=== PATIENT | male | born 1935 | race Caucasian/White ===

== ENCOUNTER 2017-02-12 06:52 | Day surgery (SDC) | payer MEDICARE, OTHER ==
[2017-02-11 10:04] LABS: BASOPHILS 0.4 %; BASOPHILS ABSOLUTE 0.05 10/3/uL (0.0-0.16); EOSINOPHILS 2.8 %; EOSINOPHILS ABSOLUTE 0.32 10/3/uL (0.0-0.53); HEMATOCRIT 26.2 % (40.0-51.0); HEMOGLOBIN 8.1 g/dL (13.6-17.8); IMMATURE GRANULOCYTES 0.3 %; IMMATURE GRANULOCYTES ABSOLUTE 0.04 10/3/uL (0.0-0.11); LYMPHOCYTES 15.2 %; LYMPHOCYTES ABSOLUTE 1.74 10/3/uL (0.67-4.30); MEAN CORPUS HGB CONC 30.9 g/dL (32.0-36.0); MEAN CORPUSCULAR HEMOGLOB 23.8 pg (26.0-34.0); MEAN PLATELET VOLUME 8.4 fL (9.2-13.0); MONOCYTES 12.8 %; MONOCYTES ABSOLUTE 1.47 10/3/uL (0.21-1.20); NEUTROPHILS 68.5 %; NEUTROPHILS ABSOLUTE 7.83 10/3/uL (2.02-8.40); RBC DISTRIBUTION WIDTH 16.3 % (12.0-16.0); WHITE BLOOD CELLS 11.5 10/3/uL (4.5-10.5)
[2017-02-11 10:05] LABS: MANUAL DIFF NO %; MEAN CORPUSCULAR VOLUME 77.1 fL (80-100); PLATELET COUNT 368 10/3/uL (150-400)
[2017-02-11 10:22] LABS: CHLORIDE, SERUM 104 MMOL/L (96-112); CO2 (CARBON DIOXIDE) 27 MMOL/L (24-34); CREATININE 1.69 MG/DL (0.70-1.30); GFR AFRICAN AMERICAN 43 ML/MIN (>=60); GFR NON AFRICAN AMERICAN 37 ML/MIN (>=60); POTASSIUM, SERUM 4.6 MMOL/L (3.5-5.3); SODIUM, SERUM 138 MMOL/L (135-148)
[2017-02-11 10:23] LABS: BUN (BLOOD UREA NITROGEN) 42 MG/DL (6-23); CALCIUM, SERUM 8.6 MG/DL (8.5-10.4); GLUCOSE, SERUM 157 MG/DL (60-99)
[2017-02-11 10:32] LABS: ASCORBIC ACID (UR NOT ORDER) NEG (NEG); BILIRUBIN, URINE NEGATIVE (NEG); KETONE, URINE NEGATIVE (NEG); LEUKOCYTE ESTERASE(NOT OR NEG (NEG); WBC (NOT ORDERED) (RFLEX) < 1 (0-5)
--- NOTE | ~2017-02-12 | OP ---
Record Of Operation [facility] [address] [place]. [address] NAME: THA HOOPER : 33 STATUS : DIS IN PAT#: [id number] AGE: 81 ADM/REG DATE : 02/12/17 MR#: [id number] REPORT SERV DATE: 02/15/17 DICTATED BY: STORM RODRÍGUEZ II DATE: 02/15/17 REPORT STATUS : Draft TRANSCRIBED BY: MODL DATE: 02/15/17 DATE OF PROCEDURE: 02/12/2017 ATTENDING CO-SURGEON: Storm Rodríguez M.D. PREOPERATIVE DIAGNOSIS: 1. Peripheral vascular disease. 2. Critical ischemia left leg with ulceration left foot. POSTOPERATIVE DIAGNOSIS: 1. Peripheral vascular disease. 2. Critical ischemia left leg with ulceration left foot. PROCEDURE: 1. Abdominal aortogram. 2. Left leg angiogram. 3. Insertion of second sheath in the left dorsalis pedis artery (pedal access). 4. Percutaneous angioplasty and stent placement of the left superficial femoral and popliteal artery occlusion. 5. Percutaneous angioplasty of the left posterior tibial artery. ANESTHESIA: Local with MAC. IV FLUIDS: 1200. ESTIMATED BLOOD LOSS: 25 mL. CONTRAST: 95. BRIEF HISTORY: Mr. Hooper is an 81-year-old gentleman who has critical ischemia of his left leg. He has had a previous attempt at percutaneous therapy but he was unsuccessful. After review of the films, he was felt to be a good candidate for possible pedal access. DETAILS OF PROCEDURE: He was taken to the operating room and placed in supine position on the table. Both groins were prepped and draped. I used ultrasound to identify the right common femoral, performed a puncture, placed a 5-Tamazight sheath. I then passed a catheter into the left iliac. Angiogram was performed demonstrating a patent left iliac system although there is tortuosity noted. There is no stenosis. We then passed a catheter into the common femoral. Right leg angiogram demonstrates a patent common femoral, profunda femoris. The SFA was completely occluded just beyond its origin. There was no flow seen. Calcification is seen throughout the SFA down near the popliteal which was again occluded. The mid popliteal was occluded. The distal popliteal was patent. The tibial disease is present. Anterior tibial is patent. Posterior tibial is patent with diffuse disease noted throughout its course. The anterior tibial is somewhat diseased but it does appear to be patent to the foot. We then heparinized the patient. I was able to pass a sheath over the bifurcation. I passed a wire through the SFA down into the popliteal but despite multiple Record Of Operation [facility] [address] [place]. [address] NAME: THA HOOPER : 33 STATUS : DIS IN PAT#: [id number] AGE: 81 ADM/REG DATE : 02/12/17 MR#: [id number] REPORT SERV DATE: 02/15/17 DICTATED BY: STORM RODRÍGUEZ II DATE: 02/15/17 REPORT STATUS : Draft TRANSCRIBED BY: MODL DATE: 02/15/17 attempts, we were unable to enter into the true lumen of the popliteal. We then elected to proceed with pedal access. I performed a puncture of the dorsalis pedis. I then passed a wire retrograde through the dorsalis pedis and anterior tibial and into the popliteal and then into the SFA in the area of occlusion. I was then able to snare this and pulled the wire through the true lumen. We then elected to proceed with angioplasty of the entire length of the SFA and popliteal. We ballooned this. Angiogram now demonstrates these areas to be open; however, there still is limited flow with two areas of dissection, 1 proximal, 1 distal. We then stented these with 5 mm stents that were placed throughout the entire length of the SFA and popliteal. We ballooned, angioplastied these and the angiogram demonstrates a good result with no further significant stenosis and good flow demonstrated distally. At this point, we elected to treat the posterior tibial. We passed a wire to the level of the ankle and then brought a 3-mm balloon into the field and percutaneous angioplasty was performed of the proximal two-thirds posterior tibial artery. The balloon was left inflated for approximately 1 minute. Completion angiogram now demonstrates a good result with flow demonstrated through this down into the posterior tibial with good flow demonstrated to the foot and at this point, he actually had a palpable pulse. We then removed all the wires and catheters and closed percutaneously. At the end of the procedure, the patient was stable. He had tolerated it well. MARIANO/NARA Storm Rodríguez II, M.D. / [id number] CC: Lorenza Good II
[~2017-02-12 06:52] MED LIST: ASA5GR PO; ATV.5 PO; BETAPACE80 PO; FLOMAX4 PO; FOLIC ACID400 MC1 PO; FORTAMET500 MG PO; GLUCXL5 PO; HYDROCHLOROT25 MG PO; LANTUS SC; MAGNESIUM PO; MONOPRIL40 MG PO; NORCO1 TA2 PO; NORV10 PO; NOVOLOG SC; P1 PO; PLAVIX PO; ZOCOR40 PO
== END 2017-02-12 19:44 | disposition home or self-care (01) ==
LOC: SDC 06:52
PROVIDERS: Surgery
PROC: 047L3ZZ Dilation of Left Femoral Artery, Percutaneous Approach (ICD-10-PCS; principal; 2017-02-12 08:45)
PROC: 047N3ZZ Dilation of Left Popliteal Artery, Percutaneous Approach (ICD-10-PCS; 2017-02-12 08:45)
PROC: 047S3ZZ Dilation of Left Posterior Tibial Artery, Percutaneous Approach (ICD-10-PCS; 2017-02-12 08:45)
PROC: B41DZZZ Fluoroscopy of Aorta and Bilateral Lower Extremity Arteries (ICD-10-PCS; 2017-02-12 08:45)
DX: I73.9 Peripheral vascular disease, unspecified (principal); I99.8 Other disorder of circulatory system; I12.9 Hypertensive chronic kidney disease with stage 1 through stage 4 chronic kidney disease, or unspecified chronic kidney disease; E11.22 Type 2 diabetes mellitus with diabetic chronic kidney disease; N18.9 Chronic kidney disease, unspecified; L97.529 Non-pressure chronic ulcer of other part of left foot with unspecified severity; I25.10 Atherosclerotic heart disease of native coronary artery without angina pectoris; D64.9 Anemia, unspecified; K21.9 Gastro-esophageal reflux disease without esophagitis; M06.9 Rheumatoid arthritis, unspecified; K44.9 Diaphragmatic hernia without obstruction or gangrene; N40.0 Benign prostatic hyperplasia without lower urinary tract symptoms; Z95.1 Presence of aortocoronary bypass graft; Z86.73 Personal history of transient ischemic attack (TIA), and cerebral infarction without residual deficits; Z91.09 Other allergy status, other than to drugs and biological substances; Z88.6 Allergy status to analgesic agent; Z95.820 Peripheral vascular angioplasty status with implants and grafts; Z86.010 Personal history of colon polyps; Z87.891 Personal history of nicotine dependence; Z96.651 Presence of right artificial knee joint; Z96.1 Presence of intraocular lens; Z98.41 Cataract extraction status, right eye; Z98.42 Cataract extraction status, left eye; Z90.49 Acquired absence of other specified parts of digestive tract; Z79.4 Long term (current) use of insulin; Z79.84 Long term (current) use of oral hypoglycemic drugs; Z79.52 Long term (current) use of systemic steroids; Z79.82 Long term (current) use of aspirin; Z79.899 Other long term (current) drug therapy
CPT/HCPCS: 36247; 36415; 37226; 37228; 71020; 75710; 80048; 81001; 82962; 85025; 86850; 86900; 86901; 86920; 87641; 93005; A9270-GY; C1725; C1760; C1769; C1876; C1894; J0690; J2250; J2370; J2405; J2710; J3010; Q9966

== ENCOUNTER 2017-02-15 15:12 | Inpatient (IN) | payer MEDICARE, OTHER ==
--- NOTE | ~2017-02-15 | CN ---
Consultation Report [facility] [address] [place]. [address] NAME: THA HOOPER : 33 STATUS : ADM IN PAT#: [id number] AGE: 81 ADM/REG DATE : 02/15/17 MR#: [id number] REPORT SERV DATE: 02/17/17 DICTATED BY: LANE SANDOVAL JR. DATE: 02/17/17 REPORT STATUS : Draft TRANSCRIBED BY: MODMelly DATE: 02/17/17 CONSULT NOTE DATE OF CONSULTATION: 02/15/2017 CHIEF COMPLAINT: Urinary retention. HISTORY OF PRESENT ILLNESS: Mr. Hooper is an 81-year-old gentleman, who was admitted through the emergency room with lower abdominal pain and was felt to have possible diverticulitis, possible urinary sepsis or bacteremia from his diverticulitis. A Shell catheter was placed in the emergency room. He had a 1000 mL residual. His creatinine at that time was 2.02. Since that time, his creatinine has come down to 1.7 yesterday and today is also 1.7. He reports that his pain that he came in with was relieved upon placement of the Shell catheter and overall has felt better over the past 24-48 hours. He does see Dr. Schrader in [place], [place]. I have also seen him here in consultation in the past. He takes Flomax 1 pill at bedtime for bladder outlet obstructive symptoms. He has not had any prior surgical intervention by Dr. Schrader for his bladder outlet obstruction. PAST MEDICAL HISTORY: Significant for peripheral arterial and peripheral vascular disease, recent stenting by Dr. Vargas in bilateral lower extremities. Chronic anemia, chronic coronary artery disease with coronary artery bypass grafting, insulin-dependent diabetes type 2, hypertension, hyperlipidemia, BPH, and a history of stroke. SURGICAL HISTORY: As mentioned above, along with a right hemicolectomy and a right common femoral artery endarterectomy with a right popliteal and right SFA stent placement. ALLERGIES: CLINDAMYCIN AND NONSTEROIDAL MEDICATIONS. HOME MEDICATIONS: Include Tylenol, Norvasc, vitamin B, Plavix, folic acid, lisinopril, glipizide, hydrochlorothiazide, sliding scale insulin, Lantus insulin, magnesium oxide, metformin ER, Bactroban, nitroglycerin, prednisone, simvastatin, sotalol, and Flomax. SOCIAL HISTORY: He quit smoking several years ago. He currently denies any alcohol or illicit drug use. FAMILY HISTORY: Significant for stroke and esophageal cancer. LABORATORY: As per the above with a creatinine returning to baseline after Shell catheter placement. IMAGING: CT scan was reviewed, which reveals a somewhat distended gallbladder along with bilateral hydronephrosis as well as a thickened bladder which is very distended. He also had some signs of sigmoid diverticulosis with possible diverticulitis. Consultation Report [address] [place]. [address] NAME: THA HOOPER : 33 STATUS : ADM IN PAT#: [id number] AGE: 81 ADM/REG DATE : 02/15/17 MR#: [id number] REPORT SERV DATE: 02/17/17 DICTATED BY: LANE SANDOVAL JR. DATE: 02/17/17 REPORT STATUS : Draft TRANSCRIBED BY: NARA DATE: 02/17/17 ASSESSMENT: Urinary retention on Flomax x1. RECOMMENDATIONS: We will leave Shell catheter for 7-10 days to allow bladder rest. We will increase his Flomax to 2 pills p.o. at bedtime and we will have him follow up with Dr. Raciel BALES for followup on his prostate enlargement. ARSEN/NARA Lane Sandoval Jr., M.D. / [id number] CC: DO Moshe Otoole Kevin
--- NOTE | ~2017-02-15 | CN ---
Consultation Report [facility] [address] [place]. [address] NAME: THA SEYMOUR : 33 STATUS : ADM IN PAT#: [id number] AGE: 81 ADM/REG DATE : 02/15/17 MR#: [id number] REPORT SERV DATE: 02/17/17 DICTATED BY: CALVIN BLUM DATE: 02/17/17 REPORT STATUS : Draft TRANSCRIBED BY: MODL DATE: 02/17/17 GENERAL SURGERY CONSULTATION AND H AND P DATE OF CONSULTATION: 02/17/2017 CHIEF COMPLAINT: Recurrent diverticulitis. HISTORY OF PRESENT ILLNESS: This is an 81-year-old male, who recently on 02/12/2017, underwent an abdominal aortogram with the left lower extremity run off, and an angioplasty, and stent placement of left SFA, and also popliteal, and left posterior tibial artery. The patient went home, was doing well, and then per the daughter in the room, the patient started having the global weakness, fevers, and some mild lower abdominal pain, as well as anorexia. Of note, the patient has significant past medical/surgical history for diverticulitis, and got a right hemicolectomy in 2008, subsequently, since 2008, the patient has not had any bout of diverticulitis. The patient was seen and worked up, the patient was found to have urinary retention, and had approximately a liter of urine that was drained. There was evidence of hydronephrosis and acute kidney injury with that. Vascular has seen the patient, the patient has good signals in bilateral lower extremities and no hematoma at the access site. The patient has a degree of dementia and therefore, the history was taken from the daughter. The patient recently has had multiple bowel movements with no blood per rectum. No melena. The patient has no abdominal pain at this time. No fever, chills, nausea, or vomiting. REVIEW OF SYSTEMS: A 12-systems reviewed to the best of the ability and negative except as mentioned in HPI. ALLERGIES: CLINDAMYCIN AND NSAID. PAST MEDICAL HISTORY: Peripheral arterial disease, status post peripheral vascular disease, status post bilateral revascularization, chronic anemia, coronary artery disease, status post CABG; diabetes type 2, hypertension, hyperlipidemia, BPH; diverticulosis; status post right hemicolectomy for diverticulitis and a CVA. SURGICAL HISTORY: CABG, right hemicolectomy, right common femoral artery endarterectomy with right popliteal, and right SFA stent placement, left SFA, and popliteal stent placement, and angioplasty. SOCIAL HISTORY: Former tobacco abuser. Currently, negative for tobacco, alcohol, or drugs. FAMILY HISTORY: Mother with a stroke. Father with phimosis and siblings with esophageal cancer. MEDICATIONS: Tylenol, Norvasc, vitamin B, Plavix, folic acid, lisinopril, glipizide, hydrochlorothiazide, insulin, Lantus, magnesium, metformin, Bactroban, nitroglycerin Consultation Report [facility] [address] [place]. [address] NAME: THA SEYMOUR : 33 STATUS : ADM IN PAT#: [id number] AGE: 81 ADM/REG DATE : 02/15/17 MR#: [id number] REPORT SERV DATE: 02/17/17 DICTATED BY: CALVIN BLUM DATE: 02/17/17 REPORT STATUS : Draft TRANSCRIBED BY: MODL DATE: 02/17/17 sublingual, prednisone, simvastatin, sotalol, and Flomax. PHYSICAL EXAMINATION: VITAL SIGNS: Temperature 97.8, blood pressure 122/57, pulse of 58, respiratory rate 16, O2 is 100% on room air. GENERAL: Well-developed, well-nourished, in no acute distress white male appears the stated age. HEENT: Normocephalic and atraumatic. PERRLA. EOMI. Mucous membranes are moist. NECK: No lymphadenopathy. Trachea midline. CARDIOVASCULAR: Regular rate and rhythm. LUNGS: Clear to auscultation bilaterally. ABDOMEN: Soft, nondistended, and nontender. Bowel sounds are present. No masses appreciated on deep palpation. EXTREMITIES: No significant clubbing, cyanosis, or edema. Good cap refill. MUSCULOSKELETAL: Moves all extremities well. NEURO: Cranial nerves 2 through 12 are intact. A and O x3. GROINS: Access site noted. No hematoma appreciated. LABORATORY DATA: White count 11.1, hematocrit 24.9, currently receiving blood products, hematocrit has gotten as low as 21, platelets 282, sodium 138, potassium 4.1, chloride 100, bicarb 23, BUN 41, creatinine 1.79, glucose calcium 7.6, magnesium 2.7, phosphorus 2.1. CT scan was reviewed and it was noted some mild diverticulosis along the descending colon, moderate diverticulosis in the sigmoid colon. There was some thickening that was noted with the descending colon, the proximal sigmoid, with some mild infiltration of pericolonic fat planes that are outreach representative of acute diverticulitis no pericolonic abscess noted. The gallbladder was contracted. Ultrasound reveals no cholelithiasis fluid, gallbladder wall not thickened. ASSESSMENT/PLAN: This is an 81-year-old male with acute diverticulitis. 1. Continue the Levaquin and Flagyl antibiotic therapy. 2. No surgical intervention necessary at this time. Advance his diet as appropriate and tolerated. DICTATED BY: MD ANITA Veronica/NARA Calvin Blum M.D. / [id number] CC: Hermann Vergara, DO Consultation Report [address] [address] NAME: THA SEYMOUR : 33 STATUS : ADM IN PAT#: [id number] AGE: 81 ADM/REG DATE : 02/15/17 MR#: [id number] REPORT SERV DATE: 02/17/17 DICTATED BY: CALVIN BLUM DATE: 02/17/17 REPORT STATUS : Draft TRANSCRIBED BY: NARA DATE: 02/17/17 TIFFANIE NEGRETE
--- NOTE | ~2017-02-15 | CN ---
Consultation Report [facility] [address] [place]. [address] NAME: THA SEYMOUR : 33 STATUS : ADM IN PAT#: [id number] AGE: 81 ADM/REG DATE : 02/15/17 MR#: [id number] REPORT SERV DATE: 02/18/17 DICTATED BY: ANNA QUINTANA DATE: 02/18/17 REPORT STATUS : Draft TRANSCRIBED BY: MODL DATE: 02/18/17 INFECTIOUS DISEASE CONSULTATION DATE OF CONSULTATION: 02/18/2017 REASON FOR CONSULTATION: Diverticulitis. HISTORY OF PRESENT ILLNESS: This is an 81-year-old man with multiple medical problems, including diabetes, coronary artery disease, and severe peripheral arterial disease. On 02/12/2017, he had undergone abdominal aortogram and left leg angiogram followed by percutaneous angioplasty and stent placement in left superficial femoral and popliteal artery occlusions along with percutaneous angioplasty of the left posterior tibial artery. The patient then represented to the emergency department on 02/15/2017, with fevers at home up to 100.8. At that time, in the chart, it states there was some complaint of lower quadrant abdominal pain, although the patient denies this now. He had a white blood cell count of 20.0 and did have a temperature here in the hospital the first 24 hours of 100.7. He also had evidence of mild acute kidney injury with creatinine of 2.02 with baseline around 1.6 and his procalcitonin was 0.32. The patient underwent a CT scan of the abdomen and pelvis without IV contrast, which was interpreted as showing mild diverticulosis of the descending colon and moderate diverticulosis of the sigmoid colon along with thickening of the [id number] descending colon and proximal sigmoid colon with mild infiltration of pericolonic fat planes, which was felt to possibly represent an early acute diverticulitis pattern. In addition, the gallbladder was contracted and mildly thickened in appearance. This led to an ultrasound of the gallbladder, which was felt to be normal. The patient was placed on admission on empiric antibiotics of Levaquin and Flagyl after blood cultures were obtained. He has improved. He has had no further fevers and his white blood cell count has decreased. It was 11.1 yesterday, although he is up to 13.2 today. His creatinine also is back to baseline. The patient denies any abdominal pain, nausea, vomiting, or diarrhea, and he is eating a diet. The patient has been followed by General surgery. PAST MEDICAL HISTORY: In addition to the above is notable for previous diverticulitis some years ago requiring right hemicolectomy. He also has a history of hyperlipidemia, BPH, hypertension, coronary artery bypass surgery. ALLERGIES: CLINDAMYCIN AND NONSTEROIDAL ANTI-INFLAMMATORY DRUGS. PRESENT MEDICATIONS: In addition to the antibiotics include Norvasc, aspirin, Plavix, folic acid, insulin sliding scale, magnesium oxide, Protonix, prednisone 6 mg daily, Zocor, Betapace, Flomax, Actigall, multivitamins, and Levemir. SOCIAL HISTORY: He lives with his of 64 years, past smoker, nondrinker. FAMILY HISTORY: Notable for mother with a stroke. Consultation Report [address] [place]. [address] NAME: THA SEYMOUR : 33 STATUS : ADM IN [facility]#: [id number] AGE: 81 ADM/REG DATE : 02/15/17 MR#: [id number] REPORT SERV DATE: 02/18/17 DICTATED BY: ANNA QUINTANA DATE: 02/18/17 REPORT STATUS : Draft TRANSCRIBED BY: NARA DATE: 02/18/17 REVIEW OF SYSTEMS: As outlined above. In addition, no chest pain, shortness of breath, or cough. The patient has had problems with urinary retention and bladder outlet obstruction and was evaluated by Dr. Sandoval this admission and a Shell catheter was placed with plans to leave it in place for seven to 10 more days. PHYSICAL EXAMINATION: VITAL SIGNS: The patient weighs 67 kg. He is afebrile. Blood pressure 168/54, pulse 60, respiratory rate 14. GENERAL: He is alert, pleasant, in no acute distress at all. HEAD AND NECK: Shows a clear oral cavity without thrush. Supple neck. LUNGS: Clear to auscultation anteriorly and laterally. CARDIAC: Without murmur, gallop, or rub. ABDOMEN: Shows bowel sounds to be present, nondistended, very soft, nontender throughout, midline scar. EXTREMITIES: No rash or edema. Couple of his left toes have some discoloration but this has improved according to his daughter. He has a peripheral IV without phlebitis. LABORATORY STUDIES: White blood cell count as mentioned, hemoglobin 10.0, platelets 303. Creatinine 1.55. Admission liver function tests normal except for AST of 59. Admission urinalysis negative except for hematuria. IMAGING STUDIES: As noted above. IMPRESSION: Sepsis on admission. This does appear to most likely be secondary to diverticulitis, although his physical exam has never been very impressive, and he denies abdominal pain now. No other likely source identified, though on a very thorough workup. He is improved on the empiric Levaquin and Flagyl, although his white blood cell count is higher today. PLAN: 1. We will change Levaquin and Flagyl to oral administration. 2. Repeat white blood cell count in the morning. If it is higher, I would substitute Augmentin for the Flagyl. SUSIE/NARA Anna Quintana M.D. / [id number] CC: Consultation Report [address] [address] NAME: HTA SEYMOUR : 33 STATUS : ADM IN PAT#: [id number] AGE: 81 ADM/REG DATE : 02/15/17 MR#: [id number] REPORT SERV DATE: 02/18/17 DICTATED BY: ANNA QUINTANA DATE: 02/18/17 REPORT STATUS : Draft TRANSCRIBED BY: NARA DATE: 02/18/17 DO PENELOPE Otoole KEVIN
--- NOTE | ~2017-02-15 | DS ---
Discharge Summary [facility] [address] [place]. [address] NAME: THA HOOPER : 33 STATUS : DIS IN PAT#: [id number] AGE: 81 ADM/REG DATE : 02/15/17 MR#: [id number] REPORT SERV DATE: 02/21/17 DICTATED BY: MAXIMO MICHELLE DATE: 02/20/17 REPORT STATUS : Draft TRANSCRIBED BY: MODL DATE: 02/20/17 ADMISSION DATE: 02/15/2017 DISCHARGE DATE: 02/20/2017 PRINCIPAL DIAGNOSIS: Sepsis associated with acute diverticulitis. SECONDARY DIAGNOSES: 1. Urinary retention with acute postobstructive acute kidney injury. 2. Generalized weakness. 3. Acute valvular heart failure. HISTORY OF PRESENT ILLNESS: Please see Dr. Bassett's dictation on 02/15/2017. HOSPITAL COURSE: Admitted with sepsis with acute kidney failure, found to have a urinary retention of greater than 3 L with hydronephrosis and acute renal insufficiency, but CT had also revealed acute diverticulitis. The patient received antibiotic therapy. IV hydration, bladder decompression with resolution of his kidney failure and improvement in his symptomatology, he is able to eat. He did not do very well with physical therapy; however, his family refused to send him to rehabilitation. They said they had five different people who could provide care for him and even help him get up and transfer which he was not independent in doing at the time of discharge. The patient had no other medical needs. He had been changed over to Levaquin and Flagyl. Other medicines include Betapace 40 mg b.i.d., Lipitor, Levemir 10 q.h.s., magnesium, aspirin, Bactroban, Flomax, Norvasc, prednisone. It should be noted the patient did not have acute cholecystitis which Dr. Vergara had expressed concern about. The patient had a decompressed gallbladder which was actually entirely normal. It should be also noted that the patient had an episode of pulmonary edema during hospitalization, after aggressive IV hydration this improved with diuretics. An echocardiogram revealed normal ejection fraction with mitral and tricuspid regurgitation. Mr. Tha Hooper will go home with followup with Dr. Juan Carlos Mesa in one to two weeks and Dr. Sandoval in one week for Shell catheter removal. Home Health Physical Therapy was arranged. Low-salt diet. Greater than 30 minutes were spent in the care of this patient on discharge planning and discharge day. ISMAEL/NARA Maximo Michelle M.D. / [id number] CC: Maximo Michelle M.D. Discharge Summary [address] [address] NAME: THA HOOPER : 33 STATUS : DIS IN PAT#: [id number] AGE: 81 ADM/REG DATE : 02/15/17 MR#: [id number] REPORT SERV DATE: 02/21/17 DICTATED BY: MAXIMO MICHELLE DATE: 02/20/17 REPORT STATUS : Draft TRANSCRIBED BY: NARA DATE: 02/20/[address] Gutiérrez Jr., M.D.
--- NOTE | ~2017-02-15 | HP ---
History And Physical [place] [id number] [facility] [place] [place]. [address] NAME: THA HOOPER : 31 STATUS : ADM IN PAT#: [id number] AGE: 81 ADM/REG DATE : 02/15/17 MR#: [id number] REPORT SERV DATE: 02/16/17 DICTATED BY: VIPIN PAREDES DATE: 02/15/17 REPORT STATUS : Draft TRANSCRIBED BY: MODL DATE: 02/15/17 DATE OF ADMISSION: 02/15/2017 POINT OF ENTRY: [facility] Emergency Department. PRIMARY WET END TESTER: Dr. Payne. PRIMARY VASCULAR SURGEON: Dr. Vargas. CHIEF COMPLAINT: Fevers, lower quadrant abdominal pain. HISTORY OF PRESENT ILLNESS: Mr. Hooper is an 81-year-old gentleman with a history of coronary artery disease as well as insulin-dependent diabetes mellitus type 2 and peripheral arterial disease, who presents to the emergency department today with reports of fever of 100.8 degrees at home as well as lower quadrant abdominal pain. The patient recently underwent left lower extremity revascularization by Dr. Vargas on 02/12/2017. Family states that he had a reported syncopal episode at home while trying to urinate shortly after arriving back from the hospital. They state that he has not had any other difficulties at home until today when he was reporting lower quadrant abdominal pain more over the bladder and also noted to have a fever of 100.8 degrees at home, and was also weak. Family denies any nausea, vomiting, or diarrhea, but did have an episode of emesis here in the emergency department. It is unclear if the patient had any change in his urinary frequency or output over the last few days. Initial evaluation in the emergency department is notable for stable vital signs, temperature of 99.0 degrees Fahrenheit. BUN 67, creatinine 2.02 which is above his baseline. His lower extremities reportedly had dopplerable pulses. Chest x-ray was clear. CT of the abdomen and pelvis was concerned for possible early acute diverticulitis as well as a mildly thickened gallbladder, and cholecystitis could not be ruled out. The patient also had a massively distended bladder as well as bilateral hydronephrosis, for which a Shell catheter was inserted and 1 L of urine was drained. The patient was subsequently admitted to the Hospitalist Service for further evaluation and management. COMPREHENSIVE REVIEW OF SYSTEMS: Otherwise negative unless listed in history of present illness. PREVIOUS MEDICAL HISTORY: 1. Peripheral arterial and peripheral vascular disease, status post bilateral revascularization. 2. Chronic anemia. 3. Coronary artery disease with prior coronary artery bypass grafting. 4. Insulin-dependent diabetes mellitus type 2. 5. Hypertension. 6. Hyperlipidemia. 7. BPH. History And Physical [address] [place]. [address] NAME: THA HOOPER : 31 STATUS : ADM IN [facility]#: [id number] AGE: 81 ADM/REG DATE : 02/15/17 MR#: [id number] REPORT SERV DATE: 02/16/17 DICTATED BY: VIPIN PAREDES DATE: 02/15/17 REPORT STATUS : Draft TRANSCRIBED BY: NARA DATE: 02/15/17 8. History of stroke. SURGICAL HISTORY: 1. CABG. 2. Right hemicolectomy. 3. Right common femoral artery endarterectomy with right popliteal and right SFA stent placement. 4. Left SFA and popliteal stent placement. ALLERGIES: ARE TO CLINDAMYCIN AND NSAIDS. HOME MEDICATIONS: 1. Tylenol 1000 mg daily p.r.n. 2. Norvasc 10 mg daily. 3. Vitamin B complex one tab daily. 4. Plavix 75 mg q.h.s. 5. Folic acid 800 mg q.h.s. 6. Lisinopril 40 mg daily. 7. Glipizide 10 mg daily. 8. Hydrochlorothiazide 25 mg daily. 9. Insulin sliding scale. 10.Lantus 18 units q.h.s. 11.Magnesium oxide 200 mg q.h.s. 12.Metformin ER 1000 mg daily. 13.Bactroban topical ointment. 14.Nitroglycerin sublingual p.r.n. 15.Prednisone 60 mg daily. 16.Simvastatin 20 mg q.h.s. 17.Sotalol 80 mg b.i.d. 18.Flomax 0.4 mg q.h.s. SOCIAL HISTORY: He is a former smoker. Currently denies any tobacco, alcohol, or illicits. FAMILY MEDICAL HISTORY: Mother with stroke history. Father with history of phimosis. Siblings, esophageal cancer. LABS AND IMAGIN. White count is 20.0, hemoglobin is 8.4, hematocrit is 26.6, platelet count is 329. 2. Sodium is 136, potassium 5.1, chloride 104, carbon dioxide 25, BUN 57, creatinine 2.02, glucose is 113, calcium is 8.3, protein 7.0, albumin is 2.9, bilirubin is 0.5, ALT is 35, AST 59, alkaline phosphatase is 101. 3. Lipase is 94. 4. Urinalysis, specific gravity is 1.013, large blood with only 2 white blood cells per high powered field. No evidence of any infection. Chest x-ray per my review shows some mild pulmonary venous congestion, but otherwise, no consolidation, infiltrate, or effusion. 5. CT scan of the abdomen and pelvis shows a distended gallbladder with bilateral History And Physical [address] [address] NAME: THA HOOPER : 31 STATUS : ADM IN [facility]#: [id number] AGE: 81 ADM/REG DATE : 02/15/17 MR#: [id number] REPORT SERV DATE: 02/16/17 DICTATED BY: VIPIN PAREDES DATE: 02/15/17 REPORT STATUS : Draft TRANSCRIBED BY: NARA DATE: 02/15/17 nephrosis as well as a mildly thickened gallbladder, cholecystitis cannot be ruled out as well as changes concerning for possible early acute descending and sigmoid diverticulitis. PHYSICAL EXAMINATION: VITAL SIGNS: Temperature is 99.0 degrees Fahrenheit, pulse is 69, respirations 17, saturating 92% on room air, blood pressure 158/61. On recheck, it is now 152/56, pulse of 73. GENERAL: The patient is awake, alert, in no acute distress. Resting comfortably in bed. He is a chronically ill-appearing elderly male. Family is at bedside. HEENT: Atraumatic and normocephalic. Moist mucous membranes. Pupils are equal, round, reactive to light and accommodation. Extraocular eye movements are intact. No scleral icterus. NECK: No jugular venous distention or carotid bruits. CARDIAC: Regular rate and rhythm. No murmurs or gallops. Normal S1, S2. LUNGS: Decreased breath sounds in the bases. Otherwise, no wheezes, rhonchi, or crackles. ABDOMEN: Soft. Somewhat tender to palpation over the left greater than right lower quadrant as well as suprapubic area. No rebound, guarding, or rigidity. No tenderness to palpation over the right upper quadrant. EXTREMITIES: Bilateral lower extremities have 1 to 2+ pitting edema. I am unable to palpate pulses bilaterally; however, they have been dopplered here in the ER. The left lower leg is somewhat cold compared to the right leg. SKIN: Warm and dry. The patient has diffuse ecchymoses over his anterior chest and bilateral upper extremities. PSYCH: Affect appropriate. NEURO: Alert and oriented x3. Cranial nerves 2 through 12 grossly intact. Speech is normal. Gait not assessed. ASSESSMENT AND PLAN: Mr. Hooper is an 81-year-old gentleman with history of peripheral arterial disease, status post recent left lower extremity revascularization, who presents with lower quadrant abdominal pain as well as fevers at home and found to have evidence of acute kidney injury as well as significant urinary retention. PROBLEM LIST: 1. Acute kidney injury. 2. Urinary retention with hydronephrosis. 3. Leukocytosis. 4. Possible early acute diverticulitis. 5. Gallbladder wall thickening. Cannot rule out cholecystitis. 6. Peripheral arterial disease and peripheral vascular disease. 7. Insulin-dependent diabetes mellitus type 2. PLAN: 1. Acute kidney injury. Suspect this is likely due to obstruction given the evidence of hydronephrosis and distended urinary bladder. The patient is also on IGGY inhibitor. We will hold the patient's IGGY inhibitor. He has already received a Shell catheter with appropriate drainage. We will provide aggressive IV fluid hydration. Checking History And Physical [address] [address] NAME: THA HOOPER : 31 STATUS : ADM IN [facility]#: [id number] AGE: 81 ADM/REG DATE : 02/15/17 MR#: [id number] REPORT SERV DATE: 02/16/17 DICTATED BY: VIPIN PAREDES DATE: 02/15/17 REPORT STATUS : Draft TRANSCRIBED BY: MODL DATE: 02/15/17 urine lytes. Followup repeat BMP in the morning. 2. Urinary retention likely secondary to the patient's known BPH. Shell catheter is in place. Continue to monitor. 3. Leukocytosis. Unclear etiology at this time. Chest x-ray is clear. Urinalysis without evidence of infection. The patient does have some changes concerning for possible early acute diverticulitis as well as cholecystitis cannot be ruled out. We will place the patient empirically on IV antibiotics. Blood cultures have been obtained. Lactic acid and procalcitonin also are pending. 4. Possible early acute diverticulitis. The patient does not have any symptoms consistent with this, but the patient is on antibiotics regardless. Continue to monitor. 5. Possible cholecystitis, again on antibiotics. No right upper quadrant ultrasound or nausea or vomiting. We will check a right upper quadrant ultrasound to better visualize the gallbladder. 6. History of peripheral arterial disease and peripheral vascular disease. The pulses have been dopplerable. There is no apparent evidence of any infection at this time. We will order an arterial Doppler to better visualize his vasculature. 7. Insulin-dependent diabetes mellitus type 2. Checking hemoglobin A1c. Place on insulin sliding scale. 8. DVT prophylaxis. Heparin subcu. 9. Code status. The patient wishes to be full code. JCB/MODL Vipin Paredes MD / [id number] CC: Don Brian M.D. Lorenza Smith II, M.D.
[2017-02-15 15:18] LABS: BASOPHILS 0.2 %; BASOPHILS ABSOLUTE 0.03 10/3/uL (0.0-0.16); EOSINOPHILS 0.1 %; EOSINOPHILS ABSOLUTE 0.02 10/3/uL (0.0-0.53); HEMATOCRIT 26.6 % (40.0-51.0); HEMOGLOBIN 8.4 g/dL (13.6-17.8); IMMATURE GRANULOCYTES 0.4 %; IMMATURE GRANULOCYTES ABSOLUTE 0.08 10/3/uL (0.0-0.11); LYMPHOCYTES 6.2 %; LYMPHOCYTES ABSOLUTE 1.23 10/3/uL (0.67-4.30); MEAN CORPUS HGB CONC 31.6 g/dL (32.0-36.0); MEAN CORPUSCULAR HEMOGLOB 23.9 pg (26.0-34.0); MEAN CORPUSCULAR VOLUME 75.6 fL (80-100); MEAN PLATELET VOLUME 8.3 fL (9.2-13.0); MONOCYTES 7.8 %; MONOCYTES ABSOLUTE 1.56 10/3/uL (0.21-1.20); NEUTROPHILS 85.3 %; NEUTROPHILS ABSOLUTE 17.03 10/3/uL (2.02-8.40); PLATELET COUNT 329 10/3/uL (150-400); RBC DISTRIBUTION WIDTH 16.3 % (12.0-16.0); RED CELL COUNT 3.52 10/6/uL (4.7-6.1)
[2017-02-15 15:25] LABS: ER CBC TAT 0 Hrs 12 Mins; MANUAL DIFF NO %
[2017-02-15 15:31] LABS: A/G RATIO 0.7 (0.7-1.9); ALBUMIN 2.9 G/DL (3.5-5.0); ALKALINE PHOSPHATASE 101 U/L (45-117); BUN (BLOOD UREA NITROGEN) 57 MG/DL (6-23); CALCIUM, SERUM 8.3 MG/DL (8.5-10.4); CHLORIDE, SERUM 104 MMOL/L (96-112); CO2 (CARBON DIOXIDE) 25 MMOL/L (24-34); CREATININE 2.02 MG/DL (0.70-1.30); GFR AFRICAN AMERICAN 34 ML/MIN (>=60); GFR NON AFRICAN AMERICAN 30 ML/MIN (>=60); GLOBULIN 4.1 G/DL (2.5-4.1); GLUCOSE, SERUM 113 MG/DL (60-99); POTASSIUM, SERUM 5.1 MMOL/L (3.5-5.3); SGOT(AST) 59 U/L (5-40); SGPT(ALT) 35 U/L (5-65); SODIUM, SERUM 136 MMOL/L (135-148); TOTAL BILIRUBIN 0.5 MG/DL (0-1.2)
[2017-02-15 16:08] LABS: BAND NEUTROPHILS 2 %; ER DIFF TAT 0 Hrs 55 Mins; LYMPHOCYTES 10 %; MONOCYTES 4 %; SEGMENTED NEUTROPHIL (0) 84 %; TOTAL NUCLEATED CELLS 100
[2017-02-15 16:09] LABS: ANISOCYTOSIS 1+ (5-10/OIF) (0-5/OIF); PLATELET ESTIMATE ADQ (ADEQUATE); POIKILOCYTOSIS 1+ (5-10/OIF) (0-5/OIF)
[2017-02-15 16:58] LABS: ASCORBIC ACID (UR NOT ORDER) NEG (NEG); BILIRUBIN, URINE NEGATIVE (NEG); ER URINALYSIS TAT 0 Hrs 14 Mins; KETONE, URINE NEGATIVE (NEG); LEUKOCYTE ESTERASE(NOT OR NEG (NEG); NITRITE (URINE) NEG (NEG); WBC (NOT ORDERED) (RFLEX) 2 (0-5)
[2017-02-15] MEDS ORDERED: P1 PO (19:16)
[2017-02-15] MEDS ORDERED: NORV10 PO (19:17)
[2017-02-15] MEDS ORDERED: HYDROCHLOROT25 MG PO (19:17)
[2017-02-15] MEDS ORDERED: MONOPRIL40 MG PO (19:17)
[2017-02-15] MEDS ORDERED: BETAPACE80 PO (19:17)
[2017-02-15] MEDS ORDERED: GLUCOTRO10 PO (19:18)
[2017-02-15] MEDS ORDERED: FORTAMET1000 MG PO (19:19)
[2017-02-15] MEDS ORDERED: PLAVIX PO (19:21)
[2017-02-15] MEDS ORDERED: ZOCOR20 PO (19:21)
[2017-02-15] MEDS ORDERED: FLOMAX4 PO (19:22)
[2017-02-15] MEDS ORDERED: MAGOX4 PO (19:22)
[2017-02-15] MEDS ORDERED: FERROCITE PO (19:22)
[2017-02-15] MEDS ORDERED: FOLIC ACID800 MCG PO (19:22)
[2017-02-15] MEDS ORDERED: BACTROINT TOP (19:23)
[2017-02-15] MEDS ORDERED: LANTUS SC (19:23)
[2017-02-15] MEDS ORDERED: NOVOLOG SC (19:23)
[2017-02-15] MEDS ORDERED: ACET500CAP PO (19:25)
[2017-02-15] MEDS ORDERED: NITROSTAT0.4 MG SL (19:26)
[2017-02-15 20:07] LABS: LACTATE 1.1 MMOL/L (0.3-2.4)
[2017-02-15 20:31] LABS: PROCALCITONIN 0.32 ng/mL (<0.5)
[2017-02-16 04:32] LABS: BASOPHILS 0.2 %; BASOPHILS ABSOLUTE 0.02 10/3/uL (0.0-0.16); EOSINOPHILS 0.5 %; EOSINOPHILS ABSOLUTE 0.06 10/3/uL (0.0-0.53); HEMOGLOBIN 7.3 g/dL (13.6-17.8); IMMATURE GRANULOCYTES 0.4 %; IMMATURE GRANULOCYTES ABSOLUTE 0.05 10/3/uL (0.0-0.11); LYMPHOCYTES 9.1 %; LYMPHOCYTES ABSOLUTE 1.05 10/3/uL (0.67-4.30); MEAN CORPUS HGB CONC 30.4 g/dL (32.0-36.0); MEAN CORPUSCULAR HEMOGLOB 23.5 pg (26.0-34.0); MEAN CORPUSCULAR VOLUME 77.4 fL (80-100); MEAN PLATELET VOLUME 8.7 fL (9.2-13.0); MONOCYTES 9.9 %; MONOCYTES ABSOLUTE 1.14 10/3/uL (0.21-1.20); NEUTROPHILS 79.9 %; RBC DISTRIBUTION WIDTH 16.6 % (12.0-16.0)
[2017-02-16 04:33] LABS: MANUAL DIFF NO %; PLATELET COUNT 218 10/3/uL (150-400); WHITE BLOOD CELLS 11.5 10/3/uL (4.5-10.5)
[2017-02-16 04:52] LABS: CALCIUM, SERUM 8.1 MG/DL (8.5-10.4); CHLORIDE, SERUM 107 MMOL/L (96-112); CO2 (CARBON DIOXIDE) 23 MMOL/L (24-34); GFR AFRICAN AMERICAN 42 ML/MIN (>=60); GFR NON AFRICAN AMERICAN 36 ML/MIN (>=60); GLUCOSE, SERUM 106 MG/DL (60-99); PHOSPHORUS, SERUM 3.3 MG/DL (2.5-4.5); POTASSIUM, SERUM 4.4 MMOL/L (3.5-5.3); SODIUM, SERUM 137 MMOL/L (135-148)
[2017-02-16 04:53] LABS: ALBUMIN 2.3 G/DL (3.5-5.0); BUN (BLOOD UREA NITROGEN) 53 MG/DL (6-23)
[2017-02-16 06:27] LABS: B NATRIURETIC PEPTIDE (BNP) 519.2 PG/ML (< 100.0)
[2017-02-16 06:33] LABS: CREATININE, URINE 37.5 MG/DL
[2017-02-16 16:27] LABS: INTERNATIONAL NORMAL RATI 1.3 UNITS (-); PARTIAL THROMBO TIME 40.5 SEC (22.5-37.2); PROTIME (NOT ORD) 15.9 SEC (12.0-14.5)
[2017-02-16 19:23] LABS: HEMOGLOBIN 6.8 g/dL (13.6-17.8)
[2017-02-17 00:05] LABS: HEMATOCRIT 21.1 % (40.0-51.0)
[2017-02-17 00:06] LABS: HEMOGLOBIN 6.5 g/dL (13.6-17.8)
[2017-02-17 00:14] LABS: PARTIAL THROMBO TIME 93.2 SEC (22.5-37.2)
[2017-02-17 01:42] LABS: GLYCOHEMOGLOBIN (HbA1c) 6.2 % (4.7-6.1)
[2017-02-17 05:28] LABS: BASOPHILS 0.3 %; BASOPHILS ABSOLUTE 0.03 10/3/uL (0.0-0.16); EOSINOPHILS 0.2 %; EOSINOPHILS ABSOLUTE 0.02 10/3/uL (0.0-0.53); HEMOGLOBIN 7.7 g/dL (13.6-17.8); IMMATURE GRANULOCYTES 0.4 %; IMMATURE GRANULOCYTES ABSOLUTE 0.04 10/3/uL (0.0-0.11); LYMPHOCYTES 13.2 %; LYMPHOCYTES ABSOLUTE 1.47 10/3/uL (0.67-4.30); MEAN CORPUS HGB CONC 31.2 g/dL (32.0-36.0); MEAN CORPUSCULAR HEMOGLOB 24.3 pg (26.0-34.0); MEAN CORPUSCULAR VOLUME 77.9 fL (80-100); MEAN PLATELET VOLUME 8.7 fL (9.2-13.0); MONOCYTES 14.2 %; MONOCYTES ABSOLUTE 1.58 10/3/uL (0.21-1.20); NEUTROPHILS 71.7 %; NEUTROPHILS ABSOLUTE 7.98 10/3/uL (2.02-8.40); PLATELET COUNT 282 10/3/uL (150-400); RBC DISTRIBUTION WIDTH 16.5 % (12.0-16.0); RED CELL COUNT 3.17 10/6/uL (4.7-6.1); WHITE BLOOD CELLS 11.1 10/3/uL (4.5-10.5)
[2017-02-17 05:30] LABS: HEMATOCRIT 24.7 % (40.0-51.0); MANUAL DIFF NO %
[2017-02-17 05:46] LABS: CALCIUM, SERUM 7.6 MG/DL (8.5-10.4); CHLORIDE, SERUM 108 MMOL/L (96-112); CO2 (CARBON DIOXIDE) 23 MMOL/L (24-34); CREATININE 1.79 MG/DL (0.70-1.30); GFR AFRICAN AMERICAN 40 ML/MIN (>=60); GFR NON AFRICAN AMERICAN 34 ML/MIN (>=60); GLUCOSE, SERUM 101 MG/DL (60-99); PHOSPHORUS, SERUM 3.1 MG/DL (2.5-4.5); POTASSIUM, SERUM 4.1 MMOL/L (3.5-5.3); SODIUM, SERUM 138 MMOL/L (135-148)
[2017-02-17 06:11] LABS: BUN (BLOOD UREA NITROGEN) 45 MG/DL (6-23)
[2017-02-17 13:07] LABS: HEMOGLOBIN 8.9 g/dL (13.6-17.8)
[2017-02-17 13:09] LABS: HEMATOCRIT 27.8 % (40.0-51.0)
[2017-02-18 06:44] LABS: BASOPHILS 0.2 %; BASOPHILS ABSOLUTE 0.03 10/3/uL (0.0-0.16); EOSINOPHILS 0.8 %; IMMATURE GRANULOCYTES 0.3 %; IMMATURE GRANULOCYTES ABSOLUTE 0.04 10/3/uL (0.0-0.11); LYMPHOCYTES 10.6 %; MEAN CORPUS HGB CONC 32.5 g/dL (32.0-36.0); MEAN PLATELET VOLUME 8.5 fL (9.2-13.0); MONOCYTES 12.1 %; NEUTROPHILS ABSOLUTE 10.06 10/3/uL (2.02-8.40); PLATELET COUNT 303 10/3/uL (150-400); RBC DISTRIBUTION WIDTH 16.1 % (12.0-16.0); WHITE BLOOD CELLS 13.2 10/3/uL (4.5-10.5)
[2017-02-18 06:47] LABS: HEMATOCRIT 30.8 % (40.0-51.0); MANUAL DIFF NO %
[2017-02-18 06:56] LABS: CALCIUM, SERUM 7.9 MG/DL (8.5-10.4); CHLORIDE, SERUM 109 MMOL/L (96-112); CO2 (CARBON DIOXIDE) 23 MMOL/L (24-34); CREATININE 1.55 MG/DL (0.70-1.30); GFR AFRICAN AMERICAN 47 ML/MIN (>=60); GFR NON AFRICAN AMERICAN 41 ML/MIN (>=60); PHOSPHORUS, SERUM 2.4 MG/DL (2.5-4.5); POTASSIUM, SERUM 3.8 MMOL/L (3.5-5.3); SODIUM, SERUM 139 MMOL/L (135-148)
[2017-02-18 06:57] LABS: BUN (BLOOD UREA NITROGEN) 36 MG/DL (6-23); GLUCOSE, SERUM 36 MG/DL (60-99)
[2017-02-19 04:26] LABS: BE (BASE EXCESS) -1.9 MEQ/L (0 +/- 2.5); CARBOXYHEMOGLOBIN 0.6 % (0-3); HCO3 (ACTUAL BICARBONATE) 21.3 MEQ/L (23-27); INSTRUMENT SERIAL # 8083; METHEMOGLOBIN 0.3 % (0-3); PCO2 (CO2 TENSION) 31 MMHG (35-45); PO2 (O2 TENSION) 57 MMHG (79-93); pH 7.46 (7.37-7.43)
[2017-02-19 04:27] LABS: ALLENS TEST Pos; DEVICE NC; O2 CONTENT 12.6 VOL% (18-24); OPERATOR ID 30014; SAMPLE Arterial
[2017-02-19 06:28] LABS: BASOPHILS 0.3 %; BASOPHILS ABSOLUTE 0.03 10/3/uL (0.0-0.16); EOSINOPHILS 0.9 %; EOSINOPHILS ABSOLUTE 0.09 10/3/uL (0.0-0.53); HEMATOCRIT 29.5 % (40.0-51.0); HEMOGLOBIN 9.6 g/dL (13.6-17.8); IMMATURE GRANULOCYTES 0.3 %; IMMATURE GRANULOCYTES ABSOLUTE 0.03 10/3/uL (0.0-0.11); LYMPHOCYTES ABSOLUTE 1.25 10/3/uL (0.67-4.30); MEAN CORPUS HGB CONC 32.5 g/dL (32.0-36.0); MEAN CORPUSCULAR HEMOGLOB 25.3 pg (26.0-34.0); MEAN CORPUSCULAR VOLUME 77.8 fL (80-100); MEAN PLATELET VOLUME 8.6 fL (9.2-13.0); MONOCYTES 13.8 %; MONOCYTES ABSOLUTE 1.44 10/3/uL (0.21-1.20); NEUTROPHILS 72.7 %; NEUTROPHILS ABSOLUTE 7.56 10/3/uL (2.02-8.40); PLATELET COUNT 309 10/3/uL (150-400); RBC DISTRIBUTION WIDTH 16.4 % (12.0-16.0); RED CELL COUNT 3.79 10/6/uL (4.7-6.1); WHITE BLOOD CELLS 10.4 10/3/uL (4.5-10.5)
[2017-02-19 06:37] LABS: BUN (BLOOD UREA NITROGEN) 34 MG/DL (6-23); CALCIUM, SERUM 7.5 MG/DL (8.5-10.4); CHLORIDE, SERUM 109 MMOL/L (96-112); CO2 (CARBON DIOXIDE) 24 MMOL/L (24-34); CREATININE 1.52 MG/DL (0.70-1.30); GFR AFRICAN AMERICAN 48 ML/MIN (>=60); GFR NON AFRICAN AMERICAN 42 ML/MIN (>=60); PHOSPHORUS, SERUM 1.7 MG/DL (2.5-4.5); POTASSIUM, SERUM 4.3 MMOL/L (3.5-5.3); SODIUM, SERUM 139 MMOL/L (135-148)
[2017-02-19 06:38] LABS: GLUCOSE, SERUM 96 MG/DL (60-99); MANUAL DIFF NO %
[2017-02-19 11:05] LABS: % IRON SAT 12 % (20-50); FERRITIN 447 NG/ML (26-388); IRON BINDING CAPACITY 130 MCG/DL (250-450); IRON, SERUM 15 MCG/DL (35-150)
[2017-02-19 11:31] LABS: RETICULOCYTE COUNT 0.7 % (0.5-2.5)
[2017-02-19 12:49] LABS: ASCORBIC ACID (UR NOT ORDER) 40 (NEG); BILIRUBIN, URINE NEGATIVE (NEG); KETONE, URINE NEGATIVE (NEG); LEUKOCYTE ESTERASE(NOT OR TRACE (NEG); WBC (NOT ORDERED) (RFLEX) 2 (0-5)
[2017-02-20 06:08] LABS: BASOPHILS 0.1 %; BASOPHILS ABSOLUTE 0.01 10/3/uL (0.0-0.16); HEMATOCRIT 29.6 % (40.0-51.0); HEMOGLOBIN 9.7 g/dL (13.6-17.8); IMMATURE GRANULOCYTES 0.5 %; IMMATURE GRANULOCYTES ABSOLUTE 0.05 10/3/uL (0.0-0.11); LYMPHOCYTES 16.6 %; LYMPHOCYTES ABSOLUTE 1.62 10/3/uL (0.67-4.30); MEAN CORPUS HGB CONC 32.8 g/dL (32.0-36.0); MEAN CORPUSCULAR HEMOGLOB 25.4 pg (26.0-34.0); MEAN CORPUSCULAR VOLUME 77.5 fL (80-100); MEAN PLATELET VOLUME 8.4 fL (9.2-13.0); MONOCYTES 13.9 %; MONOCYTES ABSOLUTE 1.36 10/3/uL (0.21-1.20); NEUTROPHILS 67.9 %; NEUTROPHILS ABSOLUTE 6.61 10/3/uL (2.02-8.40); PLATELET COUNT 296 10/3/uL (150-400); RBC DISTRIBUTION WIDTH 16.5 % (12.0-16.0); RED CELL COUNT 3.82 10/6/uL (4.7-6.1); WHITE BLOOD CELLS 9.8 10/3/uL (4.5-10.5)
[2017-02-20 06:13] LABS: MANUAL DIFF NO %
[2017-02-20 06:16] LABS: CHLORIDE, SERUM 108 MMOL/L (96-112); CO2 (CARBON DIOXIDE) 23 MMOL/L (24-34); CREATININE 1.54 MG/DL (0.70-1.30); GFR AFRICAN AMERICAN 48 ML/MIN (>=60); GFR NON AFRICAN AMERICAN 41 ML/MIN (>=60); GLUCOSE, SERUM 87 MG/DL (60-99); POTASSIUM, SERUM 4.1 MMOL/L (3.5-5.3); SODIUM, SERUM 140 MMOL/L (135-148)
[2017-02-20 06:24] LABS: BUN (BLOOD UREA NITROGEN) 29 MG/DL (6-23)
[2017-02-20] MEDS ORDERED: ASAB PO (11:39)
[2017-02-20] MEDS ORDERED: FLOMAX4 PO (11:41)
[2017-02-20] MEDS ORDERED: LEVAQUIN750 MG PO (11:43)
[2017-02-20] MEDS ORDERED: FLAG500TAB PO (11:44)
[2017-02-20] MEDS ORDERED: FLORASTOR250 MG PO (11:47)
== END 2017-02-20 13:56 | disposition home health service (06) | DRG 872 ==
LOC: ER 15:12 → 4SO 21:02 → 1SO 02-17 14:45
PROVIDERS: Internal Medicine; Nurse Practitioner; Surgery
PROC: 30233N1 Transfusion of Nonautologous Red Blood Cells into Peripheral Vein, Percutaneous Approach (ICD-10-PCS; principal; 2017-02-17)
DX: A41.9 Sepsis, unspecified organism (principal); N17.9 Acute kidney failure, unspecified; N13.30 Unspecified hydronephrosis; K57.32 Diverticulitis of large intestine without perforation or abscess without bleeding; I13.0 Hypertensive heart and chronic kidney disease with heart failure and stage 1 through stage 4 chronic kidney disease, or unspecified chronic kidney disease; N13.8 Other obstructive and reflux uropathy; E11.22 Type 2 diabetes mellitus with diabetic chronic kidney disease; F03.90 Unspecified dementia, unspecified severity, without behavioral disturbance, psychotic disturbance, mood disturbance, and anxiety; I50.9 Heart failure, unspecified; I73.9 Peripheral vascular disease, unspecified; R33.9 Retention of urine, unspecified; N40.1 Benign prostatic hyperplasia with lower urinary tract symptoms; I25.10 Atherosclerotic heart disease of native coronary artery without angina pectoris; D63.1 Anemia in chronic kidney disease; N18.9 Chronic kidney disease, unspecified; K44.9 Diaphragmatic hernia without obstruction or gangrene; L97.529 Non-pressure chronic ulcer of other part of left foot with unspecified severity; K21.9 Gastro-esophageal reflux disease without esophagitis; E78.5 Hyperlipidemia, unspecified; Z79.4 Long term (current) use of insulin; Z79.02 Long term (current) use of antithrombotics/antiplatelets; Z79.84 Long term (current) use of oral hypoglycemic drugs; Z79.899 Other long term (current) drug therapy; Z87.891 Personal history of nicotine dependence; Z95.1 Presence of aortocoronary bypass graft; Z90.49 Acquired absence of other specified parts of digestive tract; Z86.73 Personal history of transient ischemic attack (TIA), and cerebral infarction without residual deficits; Z88.1 Allergy status to other antibiotic agents; Z88.8 Allergy status to other drugs, medicaments and biological substances
CPT/HCPCS: 36415; 36600; 71010; 74176; 75710; 76705; 80048; 80053; 80069; 81001; 82272; 82570; 82728; 82805; 82962; 83036; 83540; 83550; 83605; 83690; 83735; 83880; 83935; 84100; 84145; 84300; 85014; 85018; 85025; 85045; 85610; 85730; 86850; 86900; 86901; 86920; 87040; 93005; 93306; 93925; 94640; 97110-GP; 97162-GP; 97530-GP; 99285; A9270-GY; C9113; G8978-CK-GP; G8979-CJ-GP; J1956; J2405; P9016